=== PATIENT | male | born 1990 | race Hispanic/Latino ===

== ENCOUNTER 2017-06-14 02:01 | Emergency (ER) | payer OTHER ==
[2017-06-14 03:05] LABS: #Basophils 0.1 thou/uL (0.0-0.2); #Eosinphils 0.4 thou/uL (0.0-0.7); #Lymphocytes 1.5 thou/uL (1.20-3.40); #Monocytes 0.5 thou/uL (0.11-0.59); #Neutrophils 1.4 thou/uL (1.40-6.50); %Basophils 1.4 % (0.0-1.0); %Eosinophils 9.4 % (0.0-10.0); %Monocytes 12.8 % (0.0-10.0); %Neutrophils 36.4 % (42.0-75.0); Hemoglobin 15.3 g/dL (14.0-18.0); Mean Platelet Volume 7.8 fL (7.4-10.4); Platelet Count 143 thou/uL (130-400); RBC Distribution Width 10.8 % (11.5-14.5); Red Blood Cell (RBC) Count 4.79 mill/uL (4.70-6.10); White Blood Cell (WBC) Count 3.8 thou/uL (4.8-10.8)
[2017-06-14 03:30] LABS: CKMB 0.7 ng/mL (0-6.6); Troponin I Less than 0.010 ng/mL (< 0.028)
[2017-06-14 03:39] LABS: ALT (SGPT) 17 U/L (8-55); AST (SGOT) 16 U/L (5-34); Albumin 4.6 g/dL (3.5-5.0); Alkaline Phosphatase 80 U/L (40-150); Anion Gap 9 mmol/L (10-20); BUN (Urea Nitrogen) 15 mg/dL (8.9-20.6); Bilirubin, Total 0.4 mg/dL (0.2-1.2); Calc. Creatinine Clearance 0 mL/min (70-130); Calcium 9.5 mg/dL (7.8-10.44); Carbon Dioxide 29 mmol/L (22-29); Chloride 105 mmol/L (98-107); Estimated GFR-MDRD Greater than 90; Globulin 2.3 g/dL (2.4-3.5); Glucose 143 mg/dL (70-105); Protein, Total 6.9 g/dL (6.0-8.3); Sodium 139 mmol/L (136-145)
[2017-06-14] MEDS ORDERED: Lorazepam 1 MG TAB ONE (03:51)
--- NOTE | 2017-06-14 08:14 | RAD ---
CHEST ONE VIEW: History: Panic attack. Chest pain. FINDINGS: Lungs are clear. No pneumothorax or effusion. Cardiac silhouette and mediastinal contours are within normal limits. Old right midclavicular fracture. IMPRESSION: No acute intrathoracic abnormality. POS: [facility]
--- NOTE | 2017-08-17 12:32 | EKG ---
Test Reason : Blood Pressure : / mmHG Vent. Rate : 090 BPM Atrial Rate : 090 BPM P-R Int : 136 ms QRS Dur : 088 ms QT Int : 358 ms P-R-T Axes : 070 037 040 degrees QTc Int : 437 ms Normal sinus rhythm Possible Left atrial enlargement Borderline ECG Confirmed by VINCENT MCCLENDON ([id number]), science editor KARIS GODFREY ([id number] on 08/17/2017 12:31:44 PM Referred By: Confirmed By:VINCENT MCCLENDON
== END 2017-06-14 04:43 | disposition home or self-care (01) ==
LOC: ERS 02:01
DX: F41.9 Anxiety disorder, unspecified (principal); F17.220 Nicotine dependence, chewing tobacco, uncomplicated; Z71.6 Tobacco abuse counseling
CPT/HCPCS: 36415; 71045; 80053; 82553; 84484; 85025; 93005; 99406